=== PATIENT | female | born 1960 | race Caucasian/White ===

== ENCOUNTER 2017-05-19 12:39 | Outpatient (CLI) | payer SELFPAY ==
--- NOTE | 2017-05-19 16:29 | Diagnostic Imaging Report ---
RENETTA JORGENSEN [facility] [address] Count Includes [facility] [address] [address] Report Submission Date: May 19, 2017 1:17:52 PM WEBFED OFFSET PRESS OPERATOR Patient Study Name: DAVID PERES Date: May 19, 2017 12:59:04 PM WEBFED OFFSET PRESS OPERATOR Modality Type: CR Gender: F Description: PELVIS : [birth year] Institution: [facility] Physician: RENETTA JORGENSEN Examination: Plain film pelvis/hip History: Hip discomfort Comparison exams: None provided Findings: 3 views of the pelvis and right hip demonstrates osteopenia. Lucency involving the femoral neck. No dislocation. Superior inferior pubic rami and iliac wings are without acute appearing cortical abnormality. Lumbar degenerative changes. Single view of the left hip without gross abnormality. Impression: Fracture of the right femoral neck. No dislocation. Electronically signed on May 19, 2017 1:17:52 PM WEBFED OFFSET PRESS OPERATOR by: Peterson LEWIS
== END 2017-05-19 12:40 ==
LOC: EDBD 12:39 → RAD 12:39
PROVIDERS: ATTEND Family Medicine
DX: M25.551 Pain in right hip (principal)
CPT/HCPCS: 72170